=== PATIENT | male | born 1985 ===

== ENCOUNTER 2021-06-01 12:15 | Inpatient (IN) | payer OTHER ==
[~2021-06-01] VITALS: Ht 172.7 cm; Wt 156.5 kg
[2021-06-05] MEDS ORDERED: OMEPRAZOLE20 MG (08:29)
== END 2021-06-05 12:48 | disposition home or self-care (01) | DRG 334 ==
LOC: O/R 06-04 07:46 → SURH 06-04 08:00 → OB/GYN 06-04 12:15 → SURH 06-04 12:15
PROVIDERS: ADMIT Colon & Rectal Surgery; ATTEND Colon & Rectal Surgery
PROC: 0DJD8ZZ Inspection of Lower Intestinal Tract, Via Natural or Artificial Opening Endoscopic (ICD-10-PCS; 2021-06-04)
PROC: 0DBP4ZZ Excision of Rectum, Percutaneous Endoscopic Approach (ICD-10-PCS; principal; 2021-06-04 08:00)
PROC: 3E0T3BZ Introduction of Anesthetic Agent into Peripheral Nerves and Plexi, Percutaneous Approach (ICD-10-PCS; 2021-06-05)
DX: K62.1 Rectal polyp (principal); Z20.822 Contact with and (suspected) exposure to COVID-19